=== PATIENT | female | born 1965 | race Caucasian/White ===

== ENCOUNTER 2019-07-16 17:15 | Emergency (ER) | payer OTHER ==
[~2019-07-16] VITALS: Ht 167.6 cm; Wt 88.0 kg
[~2019-07-16 17:15] MED LIST: CELEXA40 MG PO; DAYPRO600 M1 PO; HYDROCODONE BIT1 T11 PO; HYDROXYZINE50 MG PO; MOTRIN800 MG PO; NEURONTIN100 MG PO; PERCOCET 325 MG1 TA2 PO; ROBAXIN750 MG PO
[2019-07-16 17:18] VITALS: BP 147/77
== END 2019-07-16 19:47 | disposition home or self-care (01) ==
LOC: ED 17:15
DX: S52.124A Nondisplaced fracture of head of right radius, initial encounter for closed fracture (principal); K21.9 Gastro-esophageal reflux disease without esophagitis; W18.39XA Other fall on same level, initial encounter; Y93.89 Activity, other specified; Y92.89 Other specified places as the place of occurrence of the external cause; Y99.8 Other external cause status

== ENCOUNTER 2023-01-18 12:01 | Emergency (ER) | payer OTHER ==
[~2023-01-18] VITALS: Ht 167.6 cm; Wt 86.2 kg
[2023-01-18 12:08] VITALS: BP 134/74
[2023-01-18] MEDS ORDERED: PREDNISONE50 MG PO (13:47)
[2023-01-18] MEDS ORDERED: CYCLOBENZAPRINE10 MG PO (13:47)
== END 2023-01-18 13:50 | disposition home or self-care (01) ==
LOC: ED 12:01
DX: M54.41 Lumbago with sciatica, right side (principal); Z79.899 Other long term (current) drug therapy; Z98.890 Other specified postprocedural states

== ENCOUNTER 2023-08-17 16:46 | Emergency (ER) | payer OTHER ==
[~2023-08-17] VITALS: Ht 167.6 cm; Wt 87.5 kg
[~2023-08-17 16:46] MED LIST changes: +CYCLOBENZAPRINE10 MG PO; +PREDNISONE50 MG PO
[2023-08-17 18:50] VITALS: BP 134/86
[2023-08-17] MEDS ORDERED: LOSARTAN POTASS50 M1 PO (18:52)
[2023-08-17] MEDS ORDERED: HYDROCHLOROTH12.5 M2 PO (18:53)
[2023-08-17] MEDS ORDERED: OMEPRAZOLE MAGN20 MG PO (18:53)
== END 2023-08-17 20:46 | disposition home or self-care (01) ==
LOC: ED 16:46
DX: J10.1 Influenza due to other identified influenza virus with other respiratory manifestations (principal); K21.9 Gastro-esophageal reflux disease without esophagitis; F41.9 Anxiety disorder, unspecified; F32.A Depression, unspecified; I10 Essential (primary) hypertension; Z98.890 Other specified postprocedural states; Z20.822 Contact with and (suspected) exposure to COVID-19